=== PATIENT | male | born 1990 | race Caucasian/White ===

== ENCOUNTER 2023-08-01 14:18 | Emergency (ER) | payer OTHER ==
[~2023-08-01] VITALS: Ht 175.3 cm; Wt 68.0 kg
[2023-08-01 14:20] VITALS: BP_SYST 133; PULSE 78; RESP 18; TEMP 97.9; O2SAT 100
[2023-08-01] MEDS: IBUPROFEN 800 MG TABLET PO ONE (14:44)
[2023-08-01 16:57] LABS: BILIRUBIN,URINE NEGATIVE (NEGATIVE); BLOOD, URINE NEGATIVE (NEGATIVE); CLARITY/URINE CLEAR (CLEAR); COLOR,URINE YELLOW (YELLOW); GLUCOSE,URINE NEGATIVE (NEGATIVE); KETONES,URINE NEGATIVE (NEGATIVE); LEUKOCYTE ESTERASE ,URINE NEGATIVE (NEGATIVE); NITRITE, URINE NEGATIVE (NEGATIVE); PROTEIN URINE NEGATIVE (NEGATIVE); UROBILINOGEN,URINE 0.2 (0.2-1.0)
[2023-08-01] MEDS ORDERED: IBUP-1971 PO (17:27)
[2023-08-01 17:58] VITALS: BP_SYST 133; PULSE 78; RESP 18; TEMP 97.9; O2SAT 100
== END 2023-08-01 17:55 | disposition home or self-care (01) ==
LOC: SED 14:18
DX: N43.41 Spermatocele of epididymis, single (principal); N43.3 Hydrocele, unspecified; Z79.899 Other long term (current) drug therapy
CPT/HCPCS: 76870; 81001; 81003; 99284